=== PATIENT | male | born 1925 | race Caucasian/White ===

== ENCOUNTER 2016-11-25 03:15 | Inpatient (IN) | payer OTHER ==
[~2016-11-25] VITALS: Ht 160 cm; Wt 81.4 kg
--- NOTE | ~2016-11-25 | EKG ---
[address] [address] ELECTROCARDIOGRAM REPORT Name: DONNA L Room #: 427-P ADM IN .R.#: [id number] Admission: 11/25/16 Attend Phys: Manolo Newell MD Discharge: Date of : [birth year]/16/[birth year] Report #: [id number] THIS REPORT FOR: //name// ED Test Date: 2016-11-25 Test Time: 04:14:19 Pat Name: DONNA SCOTT Department: Room: 427 Gender: M Inside Solar Sales Consultant: KAE : 1925 Requested By: Anne-Marie Stephenson Order Number: [id number] MD: Elvis Mazariegos Measurements Intervals [place] Rate: 85 P: MA: QRS: 9 QRSD: 107 T: 102 QT: 412 QTc: 490 Interpretive Statements Atrial fibrillation Poor R wave progression Artifact in lead(s) I,II,III,aVR,aVL,aVF and baseline wander in lead(s) V5 No previous ECG available for comparison Electronically Signed On 11-25-2016 18:25:03 CDT by Elvis Mazariegos [email or web address] <ELECTRONICALLY SIGNED> By: Elvis Mazariegos MD, [facility] 11/25/16 1825 0414 0414 Elvis Mazariegos MD, [facility] /EPI
--- NOTE | ~2016-11-25 | EKG ---
[address] [address] ELECTROCARDIOGRAM REPORT Name: DONNA SCOTT Sandra Room #: 427-P ADM IN M.R.#: [id number] Admission: 11/25/16 Attend Phys: Manolo Newell MD Discharge: Date of : 11/16/[birth year] Report #: [id number] THIS REPORT FOR: //name// [facility] Test Date: 2016-11-27 Test Time: 12:00:53 Pat Name: DONNA SCOTT Department: Room: 427 P Gender: M Nutritional Services Director: ANNA : 1925 Requested By: Lila Chang Order Number: [id number] MD: Shane Olson Measurements Intervals [place] Rate: 94 P: 68 VA: 174 QRS: 0 QRSD: 81 T: 119 QT: 364 QTc: 456 Interpretive Statements Sinus rhythm Probable anterolateral infarct, age indeterm Compared to ECG 11/25/2016 04:14:19 no significant change Electronically Signed On 11-28-2016 14:08:18 CDT by Shane Olson [email or web address] <ELECTRONICALLY SIGNED> By: Shane Olson MD 11/28/16 1408 1200 99 MD CHASTITY Manudjano
--- NOTE | ~2016-11-25 | 2DMMODE ---
[facility] [address] [facility] [place] [address] 2 D/M-MODE ECHOCARDIOGRAM Name: DONNA L Room #: 427-P [facility]#: [id number] Admission: 11/25/16 Attend Phys: Manolo Newell MD Discharge: Date of : 11/16/[birth year] Date of Service: 11/27/16 1307 Report #: [id number] THIS REPORT FOR: //name// APPROVED REPORT Study performed: 11/27/2016 10:34:31 EXAM: Comprehensive 2D, Doppler, and color-flow Echocardiogram Patient Location: Bedside Room #: 427 Status: routine Other Information Study Quality: Adequate Indications Congestive Heart Failure Non STEMI 2D Dimensions RVDd: 33.17 mm LVEF(%): 49.92 (>50%) IVSd: 10.15 (7-11mm) LVOT Diam: 21.16 (18-24mm) LVDd: 41.21 mm PWd: 9.51 (7-11mm) Ascending Ao: 27.52 (22-36mm) LVDs: 30.90 (25-40mm) Aortic Root: 24.94 mm IVC: 2.30 mm Alexandre's LVEF: 49.92 % Volumes Left Atrial Volume (Systole) Single Plane 4CH: 74.19 mL Single Plane 2CH: 76.70 mL Aortic Valve AoV Peak Rafita.: 1.71 m/s AO Peak Gr.: 11.64 mmHg LVOT Max P.84 mmHg LVOT Max V: 0.84 m/s CLEO Vmax: 1.74 cm2 Mitral Valve E/A Ratio: 0.9 MV Decel. Time: 190.87 ms MV E Max Rafita.: 1.11 m/s MV A Rafita.: 1.26 m/s MV PHT: 55.35 ms IVRT: 69.20 ms [facility] [address] [place] [address] 2 D/M-MODE ECHOCARDIOGRAM Name: DONNA SCOTT Room #: 427-P [facility]#: [id number] Admission: 11/25/16 Attend Phys: Manolo Newell MD Discharge: Date of : 11/16/27 Date of Service: 11/27/16 1307 Report #: [id number] Pulmonary Valve PV Peak Rafita.: 0.87 m/s PV Peak Gr.: 3.03 mmHg Pulmonary Vein P Vein S: 0.49 m/s P Vein A: 0.37 m/s P Vein D: 0.30 m/s P Vein A Dur.: 101.5 msec P Vein S/D Ratio: 1.63 Tricuspid Valve TR Peak Rafita.: 3.18 m/s RAP Estimate: 10.00 mmHg TR Peak Gr.: 40.50 mmHg PA Pressure: 51.00 mmHg Left Ventricle The left ventricle is normal size. There is hypokinesis in the mid- distal anteroseptal, apical, distal lateral and distal inferior coto. There is normal left ventricular wall thickness. Left ventricular systolic function is moderate to severely decreased. LVEF is 35%. Grade I - abnormal relaxation pattern. Right Ventricle The right ventricle is normal size. The right ventricular systolic function is normal. Atria Left atrium is dilated. The right atrium size is normal. Aortic Valve The aortic valve is normal in structure. No aortic regurgitation is present. There is no aortic valvular stenosis. Mitral Valve The mitral valve is normal in structure. Mild to moderate mitral regurgitation. No evidence of mitral valve stenosis. Tricuspid Valve The tricuspid valve is normal in structure. There is trace tricuspid regurgitation. The right atrial pressure is estimated at 10 mmHg. There is moderate pulmonary hypertension with an estimated PAP of 51 mmHg. Pulmonic Valve The pulmonary valve is normal in structure. Trace pulmonic regurgitation. [address] [address] 2 D/M-MODE ECHOCARDIOGRAM Name: DONNA SCOTT Room #: 427-P [facility] IN [facility]#: [id number] Admission: 11/25/16 Attend Phys: Manolo Newell MD Discharge: Date of : 11/16/27 Date of Service: 11/27/16 1307 Report #: [id number] Great Vessels The aortic root is normal in size. IVC is dilated and collapses >50% with inspiration. Pericardium Trace pericardial effusion. <Conclusion> The left ventricle is normal size. Left ventricular systolic function is moderate to severely decreased. Grade I - abnormal relaxation pattern. The right ventricle is normal size. Left atrium is dilated. The aortic valve is normal in structure. Mild to moderate mitral regurgitation. There is trace tricuspid regurgitation. The right atrial pressure is estimated at 10 mmHg. There is moderate pulmonary hypertension with an estimated PAP of 51 mmHg. <ELECTRONICALLY SIGNED> By: Shane Olson MD 11/27/16 1307 1307 1307 Shane Olson MD /INF
--- NOTE | ~2016-11-25 | HC ---
[facility] [address] [place] [address] CONSULTATION Name: DONNA SCOTT Room #: 427-P [facility] IN .R.#: [id number] Admission: 11/25/16 Attend Phys: Manolo Newell MD Discharge: Date of : 11/16/[birth year] Report #: [id number] THIS REPORT FOR: //name// CC: FAM unknown Manolo Newell DATE OF SERVICE: 11/25/2016 REASON FOR CONSULTATION: Exacerbation of COPD. IMPRESSION: 1. Exacerbation of chronic obstructive pulmonary disease. 2. Possible volume overload, congestive heart failure. 3. History of Clostridium difficile. 4. Lower extremity edema. 5. Hypothyroidism. PLAN: We will decrease IV fluids. We will do venous Doppler of lower extremities. Continue aerosol therapy, decrease steroids as able. Discussed with nurse. HISTORY OF PRESENT ILLNESS: An 89-year-old male transferred because of progressive shortness of breath. No definite chest pain or palpitations. Discharged from [facility], had been on doxycycline, Keflex, oral vancomycin. Also had history of cellulitis per chart. PAST MEDICAL HISTORY: Per chart. MEDICATIONS: Had included ascorbic acid, aspirin, Coreg, cephalexin, cholecalciferol, cholestyramine, Plavix, doxycycline, levothyroxine, calcium, losartan. ALLERGIES: None known. SOCIAL HISTORY: Per chart, negative tobacco, negative ETOH. REVIEW OF SYSTEMS: When seen this morning, the patient denied chest pain or shortness of breath. Did relate he was short of breath in the past. Denied any hemoptysis or hematemesis or nausea, vomiting. Did complain of loose stools. PHYSICAL EXAMINATION: VITAL SIGNS: Temperature 37, pulse , respirations 19 and BP 127/76. EYES: Negative icterus. NECK: Negative JVD. LUNGS: Showed mild wheeze. HEART: Regular. [facility] [address] [place] [address] CONSULTATION Name: DONNA SCOTT Sandra Room #: 427-P [facility] IN [facility]#: [id number] Admission: 11/25/16 Attend Phys: Manolo Newell MD Discharge: Date of : 11/16/[birth year] Report #: [id number] ABDOMEN: Bowel sounds present. EXTREMITIES: Showed positive edema and mild erythema, no calf tenderness. LABORATORY DATA: White count 11.2, hemoglobin 13.2, platelets 199. No bands. BUN 17, creatinine 1.3. Troponin less than 0.04. ProBNP 3024. Chest x-ray showed mild congestion, left atelectasis. He denied sputum production. <ELECTRONICALLY SIGNED> By: Yogesh Ravi MD 11/30/16 1914 215 17 Yogesh Ravi MD /nt
--- NOTE | ~2016-11-25 | HC ---
[facility] [place] [place] [address] CONSULTATION Name: DONNA SCOTT Room #: 427-P [facility] IN ..#: [id number] Admission: 11/25/16 Attend Phys: Manolo Newell MD Discharge: Date of : 11/16/27 Report #: [id number] THIS REPORT FOR: //name// CC: FAM unknown Manolo Newell INFECTIOUS DISEASE CONSULTATION REASON FOR CONSULTATION: I was asked to evaluate concerning pneumonia. HISTORY OF PRESENT ILLNESS: The patient is an 89-year-old with underlying history of COPD, congestive heart failure and diabetes. Hospitalized recently at [facility] and was discharged on 11/22, to ____ assisted living. The patient does state he fell, although I have not corroborated that report. EMS states that he is hypoxic on room air and was admitted through the emergency room. He was on cephalexin and doxycycline. He was also on oral vancomycin, I would assume for C. difficile colitis, although the patient denies having any current diarrhea. Diagnoses at [facility] were cellulitis and pneumonia. The patient was sitting up in his chair, denied any headache, cough, or sputum production. He states he has had no ongoing pain. No nausea, vomiting, or diarrhea. He denies any lower extremity discomfort or cellulitis. ALLERGIES: None known. MEDICATIONS: As noted on his MAR including vancomycin enterally and Levaquin. PAST MEDICAL HISTORY: Congestive heart failure, COPD, hypertension, hypothyroidism, diabetes, dementia, BPH, atrial fibrillation, and vitamin D and B12 deficiency. FAMILY HISTORY: Noncontributory. SOCIAL HISTORY: Nonsmoker. No significant alcohol intake. REVIEW OF SYSTEMS: As noted above. PHYSICAL EXAMINATION: VITAL SIGNS: He is afebrile, hemodynamically stable. GENERAL: He is sitting up in his chair. EXTREMITIES: He had 2+ lower extremity edema and no cellulitis identified. HEENT: Unremarkable. NECK: Supple. LUNGS: Have decreased breath sounds in the bases bilaterally. HEART: Regular without murmur. ABDOMEN: Soft, nontender, no hepatosplenomegaly or mass. [facility] [address] [place] [address] CONSULTATION Name: DONNA SCOTT Sandra Room #: 427-P [facility].#: [id number] Admission: 11/25/16 Attend Phys: Manolo Newell MD Discharge: Date of : 11/16/[birth year] Report #: [id number] NEUROLOGIC: Nonfocal. LABORATORY STUDIES: Sodium 140, potassium 4.0, bicarbonate 28, creatinine 1.5, albumin of 3. Liver function tests normal. Lactate 4.1. Troponin negative. BNP 3914. Hemoglobin 12.2, WBC 20.8, platelet count 179,000; 89% neutrophils, and 6% bands. C. difficile PCR was negative. ABG on room air showed a pO2 of 60, pCO2 of 40, and pH 7.4. Chest x-ray, perihilar and basilar infiltrates with atelectasis and small effusions. Ultrasound of the lower extremity is negative for DVT. IMPRESSION: An 89-year-old with exacerbation of chronic obstructive pulmonary disease along with congestive heart failure. He has peripheral edema and venous stasis changes. In addition, he is on treatment for Clostridium difficile colitis . Would recommend diuresis as able and follow his chest x-ray. We will continue with Levaquin for short course and enteral vancomycin for his Clostridium difficile colitis history. I am suspecting that his leukocytosis is from the corticosteroids. We will follow his white blood cell count. Continue with leg elevation and compression. <ELECTRONICALLY SIGNED> By: Kristopher Talley MD 11/27/16 1127 1155 1225 Kristopher Talley MD /nt
[2016-11-25 03:16] VITALS: BP 178/91
[2016-11-25] MEDS ORDERED: ASA5UEC PO (03:48)
[2016-11-25] MEDS ORDERED: ACIDOPHILUS1 EAC2 PO (03:48)
[2016-11-25] MEDS ORDERED: VITAMINC500 (03:48)
[2016-11-25] MEDS ORDERED: KEFLEX500 M1 PO (03:49)
[2016-11-25] MEDS ORDERED: COREG3.125 MG PO (03:49)
[2016-11-25] MEDS ORDERED: CENTRUM SILVER1 EAC4 (03:49)
[2016-11-25] MEDS ORDERED: VITAMIN D1000 UNI1 PO (03:50)
[2016-11-25] MEDS ORDERED: PLAVIX 75 MG TA75 M1 PO (03:51)
[2016-11-25] MEDS ORDERED: CRANBERRY450 M1 PO (03:51)
[2016-11-25] MEDS ORDERED: CHOLESTYRAMINE P4 GM PO (03:51)
[2016-11-25] MEDS ORDERED: VITAMIN B-12500 MCG PO (03:52)
[2016-11-25] MEDS ORDERED: DONEPEZIL HCL10 MG (03:52)
[2016-11-25] MEDS ORDERED: IRON325 PO (03:53)
[2016-11-25] MEDS ORDERED: DOXYCYCLINE 10100 MG (03:53)
[2016-11-25] MEDS ORDERED: PROSCAR 5MG TABL5 MG PO (03:54)
[2016-11-25] MEDS ORDERED: FISH OIL 1,001000 M2 PO (03:54)
[2016-11-25] MEDS ORDERED: HYDROCORTISONE30 G9 PO (03:55)
[2016-11-25] MEDS ORDERED: HYDROCORTISONE PO (03:55)
[2016-11-25] MEDS ORDERED: LEVOTHYROXINE 0.1 MG PO (03:56)
[2016-11-25] MEDS ORDERED: COZAAR 25 MG TA25 M1 (03:56)
[2016-11-25] MEDS ORDERED: LEVEMIR100 UNIT/1 SUBQ (03:56)
[2016-11-25 03:57] LABS: ABG SAMPLE TYPE VENOUS; BE(vivo) 1.2 mmol/L (-2 to +3); HCO3 29.7 mmol/L (22.0-26.0); LACTATE 2.22 mmol/L (0.5-2.0); O2(CT) 8.3 mL/dL (15.0-23.0); O2Hb VENOUS 40.2 (65.0-85.0); PCO2 VENOUS 64.9 mmHg (41.0-51.0); PO2 VENOUS 24.1 mmHg (35.0-45.0); STICK SITE L.RADIAL; tCO2 31.7 mmol/L (24.0-30.0)
[2016-11-25] MEDS ORDERED: OYSTER SHELL C1 EA15 (03:59)
[2016-11-25 04:00] VITALS: BP 161/63
[2016-11-25] MEDS ORDERED: KLOR-CON 1010 MEQ (04:00)
[2016-11-25] MEDS ORDERED: VANCOMYCIN HCL500 MG PO (04:02)
[2016-11-25] MEDS ORDERED: ZINC50 MG (04:03)
[2016-11-25 04:10] LABS: ABSOLUTE NEUTROPHILS 8.1 thou/uL (1.4-8.2); BASOPHILS 0.9 % (0.0-2.0); EOSINOPHILS 2.4 % (0.0-3.0); HEMATOCRIT 39.8 % (42.0-52.0); HEMOGLOBIN 13.2 gm/dL (14.0-18.0); LYMPHOCYTES 17.9 % (24.0-44.0); MCH 31.4 pg (26.0-34.0); MCHC 33.2 g/dL (28.0-37.0); MCV 94.5 fL (80.0-100.0); MONOCYTES 5.9 % (1.0-8.0); PLATELET COUNT 199 thou/uL (150-400); POLYS 72.9 % (36.0-66.0); RBC 4.21 mil/uL (4.50-6.00); RDW 13.9 % (10.5-14.5); WBC 11.2 thou/uL (4.0-11.0)
[2016-11-25 04:11] LABS: MANUAL DIFF NO
[2016-11-25 04:14] LABS: ANION GAP 8 mmol/L (7-16); BUN 17 mg/dL (7-18); CALCIUM 9.5 mg/dL (8.5-10.1); CHLORIDE 104 mmol/L (98-107); CO2 30 mmol/L (21-32); CREATININE 1.3 mg/dL (0.7-1.3); GLUCOSE 182 mg/dL (74-106); POTASSIUM 4.5 mmol/L (3.5-5.1); SODIUM 142 mmol/L (136-145)
[2016-11-25 04:29] LABS: NT-PRO BRAIN NAT PEPTIDE 3024 pg/mL (<300); TROPONIN-I < 0.04 ng/mL (<0.04-0.07)
[2016-11-25 05:32] VITALS: BP 159/58
[2016-11-25 08:03] VITALS: BP 127/76
[2016-11-25 09:24] LABS: ABG SAMPLE TYPE ARTERIAL; BE(vivo) 1.1 mmol/L (-2 to +3); O2(CT) 17.9 mL/dL (15.0-23.0); O2Hb 92.3 % (92.0-98.0); PCO2 47.6 mmHg (35.0-45.0); PO2 68.9 mmHg (80.0-100.0); pH 7.371 (7.360-7.450); sO2 93.2 % (92.0-98.0); tCO2 28.4 mmol/L (24.0-30.0)
[2016-11-25 09:25] LABS: LACTATE 4.34 mmol/L (0.5-2.0); STICK SITE R.RADIAL
[2016-11-25 20:53] VITALS: BP 139/58
[2016-11-25 23:31] VITALS: BP 120/50
[2016-11-26 01:36] LABS: HEMATOCRIT 36.1 % (42.0-52.0); HEMOGLOBIN 12.2 gm/dL (14.0-18.0); MCH 31.2 pg (26.0-34.0); MCHC 33.7 g/dL (28.0-37.0); MCV 92.6 fL (80.0-100.0); PLATELET COUNT 179 thou/uL (150-400); RDW 13.5 % (10.5-14.5); WBC 20.8 thou/uL (4.0-11.0)
[2016-11-26 01:50] LABS: CALCIUM 9.1 mg/dL (8.5-10.1); CREATININE 1.5 mg/dL (0.7-1.3); MAGNESIUM 1.6 mg/dL (1.8-2.4); TOTAL BILIRUBIN 0.3 mg/dL (<0.1-1.0); TOTAL PROTEIN 6.3 g/dL (6.4-8.2)
[2016-11-26 01:54] LABS: MANUAL DIFF YES
[2016-11-26 02:01] LABS: NT-PRO BRAIN NAT PEPTIDE 3914 pg/mL (<300); TROPONIN-I < 0.04 ng/mL (<0.04-0.07)
[2016-11-26 02:32] LABS: ABSOLUTE NEUTROPHILS 19.8 thou/uL (1.4-8.2); ATYPICAL LYMPHS 1 %; TOTAL CELL COUNT 100
[2016-11-26 03:21] VITALS: BP 139/65
[2016-11-26 07:35] LABS: ABG SAMPLE TYPE ARTERIAL; BE(vivo) -0.1 mmol/L (-2 to +3); HCO3 24.6 mmol/L (22.0-26.0); O2Hb 89.8 % (92.0-98.0); PCO2 40.4 mmHg (35.0-45.0); PO2 60.3 mmHg (80.0-100.0); pH 7.402 (7.360-7.450); sO2 91.2 % (92.0-98.0); tCO2 25.8 mmol/L (24.0-30.0)
[2016-11-26 07:37] LABS: LACTATE 4.75 mmol/L (0.5-2.0); STICK SITE L.RADIAL
[2016-11-26 08:37] VITALS: BP 159/823
[2016-11-26 16:33] VITALS: BP 111/46
[2016-11-26 19:43] VITALS: BP 138/69
[2016-11-27 03:29] VITALS: BP 127/59
[2016-11-27 06:51] LABS: MCH 30.8 pg (26.0-34.0); MCHC 32.5 g/dL (28.0-37.0); MCV 94.7 fL (80.0-100.0); PLATELET COUNT 237 thou/uL (150-400); RBC 3.91 mil/uL (4.50-6.00); RDW 14.1 % (10.5-14.5); WBC 19.5 thou/uL (4.0-11.0)
[2016-11-27 07:02] LABS: MANUAL DIFF YES
[2016-11-27 07:33] VITALS: BP 125/48
[2016-11-27 08:20] LABS: ALBUMIN 3.3 g/dL (3.4-5.0); CALCIUM 9.5 mg/dL (8.5-10.1); CREATININE 1.9 mg/dL (0.7-1.3); MAGNESIUM 1.9 mg/dL (1.8-2.4); POTASSIUM 4.1 mmol/L (3.5-5.1); TOTAL BILIRUBIN 0.3 mg/dL (<0.1-1.0); TOTAL PROTEIN 6.5 g/dL (6.4-8.2)
[2016-11-27 08:26] LABS: TROPONIN-I 5.36 ng/mL (<0.04-0.07)
[2016-11-27 08:38] LABS: ABSOLUTE NEUTROPHILS 18.1 thou/uL (1.4-8.2); PLATELET ESTIMATE NORMAL; TOTAL CELL COUNT 100
[2016-11-27 10:44] LABS: TSH 0.025 uIU/mL (0.358-3.740)
[2016-11-27 20:47] VITALS: BP 161/86
[2016-11-28 03:22] VITALS: BP 130/57
[2016-11-28 04:29] LABS: HEMATOCRIT 37.4 % (42.0-52.0); HEMOGLOBIN 12.4 gm/dL (14.0-18.0); MCH 31.3 pg (26.0-34.0); MCV 94.6 fL (80.0-100.0); RBC 3.95 mil/uL (4.50-6.00); RDW 13.9 % (10.5-14.5); WBC 17.8 thou/uL (4.0-11.0)
[2016-11-28 04:48] LABS: ALBUMIN 3.2 g/dL (3.4-5.0); CALCIUM 8.9 mg/dL (8.5-10.1); CREATININE 1.7 mg/dL (0.7-1.3); POTASSIUM 3.7 mmol/L (3.5-5.1)
[2016-11-28 04:53] LABS: TROPONIN-I 4.57 ng/mL (<0.04-0.07)
[2016-11-28 07:46] VITALS: BP 131/75
[2016-11-28 15:47] VITALS: BP 101/45
[2016-11-28 20:10] VITALS: BP 129/51
[2016-11-29 01:19] VITALS: BP 135/60
[2016-11-29 04:00] VITALS: BP 140/57
[2016-11-29 04:11] LABS: ALBUMIN 3.2 g/dL (3.4-5.0); CALCIUM 9.1 mg/dL (8.5-10.1); CREATININE 1.9 mg/dL (0.7-1.3); MAGNESIUM 2.1 mg/dL (1.8-2.4)
[2016-11-29 04:14] LABS: TROPONIN-I 1.66 ng/mL (<0.04-0.07)
[2016-11-29 04:23] LABS: HEMOGLOBIN 12.7 gm/dL (14.0-18.0); MCH 31.2 pg (26.0-34.0); MCHC 33.5 g/dL (28.0-37.0); MCV 93.2 fL (80.0-100.0); PLATELET COUNT 174 thou/uL (150-400); RBC 4.07 mil/uL (4.50-6.00); RDW 13.7 % (10.5-14.5); WBC 13.7 thou/uL (4.0-11.0)
[2016-11-29 04:30] LABS: MANUAL DIFF YES
[2016-11-29 08:25] LABS: ABSOLUTE NEUTROPHILS 13.3 thou/uL (1.4-8.2); TOTAL CELL COUNT 100
[2016-11-29 08:26] LABS: ANISOCYTOSIS SLIGHT
[2016-11-29 10:07] VITALS: BP 113/42
[2016-11-29 16:46] VITALS: BP 123/45
[2016-11-29 19:49] VITALS: BP 135/49
[2016-11-30 03:29] VITALS: BP 129/47
[2016-11-30 05:38] LABS: HEMATOCRIT 36.6 % (42.0-52.0); HEMOGLOBIN 12.3 gm/dL (14.0-18.0); MCH 31.3 pg (26.0-34.0); MCHC 33.6 g/dL (28.0-37.0); MCV 93.3 fL (80.0-100.0); PLATELET COUNT 183 thou/uL (150-400); RBC 3.92 mil/uL (4.50-6.00); RDW 13.7 % (10.5-14.5); WBC 16.6 thou/uL (4.0-11.0)
[2016-11-30 05:44] LABS: MANUAL DIFF YES
[2016-11-30 05:46] LABS: CALCIUM 9.2 mg/dL (8.5-10.1); CREATININE 1.8 mg/dL (0.7-1.3); PHOSPHORUS 4.6 mg/dL (2.5-4.9); POTASSIUM 3.5 mmol/L (3.5-5.1)
[2016-11-30 07:15] LABS: ABSOLUTE NEUTROPHILS 14.9 thou/uL (1.4-8.2); PLATELET ESTIMATE NORMAL; TOTAL CELL COUNT 100
[2016-11-30 15:35] VITALS: BP 142/48
[2016-11-30 20:10] VITALS: BP 141/118
[2016-12-01 03:13] VITALS: BP 165/81
[2016-12-01 05:47] LABS: CALCIUM 8.9 mg/dL (8.5-10.1); CREATININE 1.7 mg/dL (0.7-1.3); PHOSPHORUS 4.2 mg/dL (2.5-4.9); POTASSIUM 3.5 mmol/L (3.5-5.1)
[2016-12-01 08:03] VITALS: BP 144/59
[2016-12-01 17:22] VITALS: BP 136/47
[2016-12-01 20:00] VITALS: BP 154/65
[2016-12-02 04:00] VITALS: BP 157/71
[2016-12-02 07:21] LABS: CALCIUM 9.3 mg/dL (8.5-10.1); CREATININE 1.5 mg/dL (0.7-1.3); POTASSIUM 4.1 mmol/L (3.5-5.1)
[2016-12-02 08:25] VITALS: BP 152/70
[2016-12-02 16:30] VITALS: BP 136/64
[2016-12-02 20:03] VITALS: BP 137/99
[2016-12-03 03:41] VITALS: BP 147/73
[2016-12-03 08:02] VITALS: BP 134/58
[2016-12-03 08:54] LABS: CALCIUM 9.3 mg/dL (8.5-10.1); CREATININE 1.5 mg/dL (0.7-1.3); PHOSPHORUS 3.6 mg/dL (2.5-4.9); POTASSIUM 4.4 mmol/L (3.5-5.1)
[2016-12-03] MEDS ORDERED: LEVAQUIN 250 M250 MG PO (09:21)
[2016-12-03] MEDS ORDERED: VANCOMYCIN100 MG/ML PO (09:21)
[2016-12-03] MEDS ORDERED: LASIX 40 MG TAB40 M1 PO (09:22)
[2016-12-03] MEDS ORDERED: PREDNISONE 20 M20 M1 PO (09:27)
[2016-12-03 16:48] VITALS: BP 141/66
[2016-12-03 19:02] VITALS: BP 158/66
[2016-12-04 03:43] VITALS: BP 144/75
[2016-12-04 07:53] VITALS: BP 147/55
== END 2016-12-04 13:11 | DRG 871 ==
LOC: ER 03:15 → 4E 04:39 → EROBS 04:39 → 4E 05:15
PROVIDERS: Emergency Medicine; Hospitalist; Internal Medicine Cardiovascular Disease; Internal Medicine Infectious Disease; Internal Medicine Pulmonary Disease; Nurse Practitioner Family; Nurse Practitioner Gerontology
DX: A41.9 Sepsis, unspecified organism (principal); J96.21 Acute and chronic respiratory failure with hypoxia; J18.1 Lobar pneumonia, unspecified organism; G93.41 Metabolic encephalopathy; I21.4 Non-ST elevation (NSTEMI) myocardial infarction; I50.43 Acute on chronic combined systolic (congestive) and diastolic (congestive) heart failure; J44.1 Chronic obstructive pulmonary disease with (acute) exacerbation; J44.0 Chronic obstructive pulmonary disease with (acute) lower respiratory infection; L03.116 Cellulitis of left lower limb; L03.115 Cellulitis of right lower limb; A04.7 Enterocolitis due to Clostridium difficile; N17.9 Acute kidney failure, unspecified; I11.0 Hypertensive heart disease with heart failure; E11.9 Type 2 diabetes mellitus without complications; I48.91 Unspecified atrial fibrillation; F03.90 Unspecified dementia, unspecified severity, without behavioral disturbance, psychotic disturbance, mood disturbance, and anxiety; N40.0 Benign prostatic hyperplasia without lower urinary tract symptoms; E78.5 Hyperlipidemia, unspecified; E03.9 Hypothyroidism, unspecified; I25.5 Ischemic cardiomyopathy; I34.0 Nonrheumatic mitral (valve) insufficiency; I27.2 Other secondary pulmonary hypertension; Z79.899 Other long term (current) drug therapy; Z79.82 Long term (current) use of aspirin
CPT/HCPCS: 10183

== ENCOUNTER 2016-12-24 18:25 | Inpatient (IN) | payer OTHER ==
[~2016-12-24] VITALS: Ht 154.9 cm; Wt 85.0 kg
--- NOTE | ~2016-12-24 | EKG ---
[place] [address] [address] [place] [address] ELECTROCARDIOGRAM REPORT Name: DONNA SCOTT Sandra Room #: 451-P ADM IN .R.#: [id number] Admission: 12/24/16 Attend Phys: Manolo Newell MD Discharge: Date of : 11/16/27 Report #: [id number] THIS REPORT FOR: //name// [facility] ED Test Date: 2016-12-24 Test Time: 19:10:34 Pat Name: DONNA SCOTT Department: Room: [facility] Gender: M Bilingual Speech Therapist: [id number] : 1925 Requested By: Jake Bassett Order Number: [id number] MD: Elvis Mazariegos Measurements Intervals [place] Rate: 78 P: 58 SD: 155 QRS: -18 QRSD: 91 T: 108 QT: 394 QTc: 449 Interpretive Statements Sinus rhythm LVH with secondary repolarization abnormality Anterior infarct, old Compared to ECG 11/27/2016 12:00:53 Left ventricular hypertrophy now present Electronically Signed On 12-25-2016 8:42:25 CDT by Elvis Mazariegos [email or web address] <ELECTRONICALLY SIGNED> By: Elvis Mazariegos MD, [facility] 12/25/16 0842 09 09 Elvis Mazariegos MD, [facility] /EPI
--- NOTE | ~2016-12-24 | HC ---
[facility] [place] [address] CONSULTATION Name: DONNA SCOTT Room #: 451-P [facility] IN [facility].#: [id number] Admission: 12/24/16 Attend Phys: Manolo Newell MD Discharge: Date of : 11/16/[birth year] Report #: [id number] THIS REPORT FOR: //name// CC: FAM physician/PCP Manolo Newell DATE OF SERVICE: 12/25/2016 ATTENDING PHYSICIAN: Manolo Newell M.D. REASON FOR CONSULTATION: Possible pneumonia. HISTORY OF PRESENT ILLNESS: An 89-year-old white man readmitted to the hospital with history of increasing shortness of breath, possible pneumonia and congestive heart failure. The patient tells me he resides at a local rehabilitation place he does not know the name. He is being assisted by his nurse who corrects the patient who tells me he is admitted because he fell. Actually, it appears that the reason for admission is increasing shortness of breath and fluid retention, congestive heart failure. The patient's son has related the patient had refused using supplemental oxygen as advised. The patient's son has reported weight gain, retention of fluid and increasing shortness of breath. There appears not to be fevers, chills, hemoptysis, nausea, vomiting, diarrhea. PAST MEDICAL HISTORY: Chronic kidney disease. Congestive heart failure. Obesity. COPD. Previous episode of pneumonia. Recent pulmonary hypertension. Dementia. During current hospitalization, note is made the patient had worsening of renal function as well as development of thrombocytopenia. DRUG ALLERGIES: None listed. MEDICATIONS: The patient is currently on treatment with Levaquin 500 mg IV every 48 hours, donepezil, ferrous sulfate, methylprednisolone 40 mg IV b.i.d., aspirin, clopidogrel, insulin detemir, furosemide, carvedilol, Zosyn 2.25 grams IV every 6 hours, sodium chloride 1000 mL every 13 hours, Atrovent and albuterol inhalation treatments, guaifenesin, insulin lispro per sliding scale, p.r.n. dextrose and glucagon for hypoglycemia, p.r.n. ondansetron and nitroglycerin. He is also occasionally requiring Tylenol p.r.n., polyethylene glycol daily for constipation has been prescribed. SOCIAL HISTORY: See H and P old record. FAMILY HISTORY: See H and P old record. [address] [address] CONSULTATION Name: DONNA SCOTT Room #: 451-P [facility] IN [facility].#: [id number] Admission: 12/24/16 Attend Phys: Manolo Newell MD Discharge: Date of : 11/16/[birth year] Report #: [id number] REVIEW OF SYSTEMS: The patient is deemed to be not a good historian and most of the information on the patient is gathered from review of records. PHYSICAL EXAMINATION: GENERAL: Chronically ill appearing white man. VITAL SIGNS: Afebrile since admission, temperature 97.6, pulse 71, respirations 18, BP 142/63, weight 187.3 pounds, height 5 feet 1 inch. HEENMT: Pupils reactive. Mouth: No thrush. NECK: Supple. LUNGS: Rhonchi with basilar crackles. HEART: S1, S2. No gallop. ABDOMEN: Obese, soft, superficial ecchymosis suspect from subcutaneous heparin. GENITALIA: Revealed swelling of scrotum. RECTAL: Deferred. EXTREMITIES: Pretibial edema. NEUROLOGIC: Grossly within normal limits. LABORATORY DATA: Revealed hyperkalemia of 5.9 yesterday and potassium normalized at 4.8 today, CO2 37, BUN 52, creatinine 2.6. Note is made on 12/03/2016, creatinine was 1.5. Glucose 358-147, SGOT 57, subsequently 43 U/L, SGPT 121, albumin 2.9 g/dL. NT-proBNP 4616. White blood cell count 15,300, hemoglobin 12.1 g/dL and platelets 94,000. The white blood cell count differential revealed 98% segmented neutrophils. Urinalysis is pending. ABGs reveal pH 7.39, pCO2 45, pO2 97, bicarbonate 27. These set of gases on supplemented oxygen with nasal cannula at 3.5 liters per minute. MICROBIOLOGY DATA: Blood cultures were obtained. They are negative at the time of this dictation. RADIOLOGY EVALUATION: A chest x-ray is obtained and revealed cardiomegaly, congestive heart failure, patchy bilateral pulmonary infiltrates and I cannot review x-rays on the current computer. We will try to review on another one. ASSESSMENT: 1. Congestive heart failure and possible superimposed pneumonia. 2. Chronic obstructive pulmonary disease. 3. Acute kidney injury on chronic kidney disease. 4. Diabetes mellitus. SUGGESTIONS: Recommend continued coverage with Levaquin and Zosyn for time being. Monitor laboratory parameters, try to determine etiology of thrombocytopenia. Mild hydration may be in order, though the patient has congestive heart failure as well. [facility] [address] [place] [address] CONSULTATION Name: DONNA SCOTT Room #: 451-P ADM IN [place]#: [id number] Admission: 12/24/16 Attend Phys: Manolo Newell MD Discharge: Date of : 11/16/[birth year] Report #: [id number] Newell, thank you for requesting my suggestions in the care of your patient. <ELECTRONICALLY SIGNED> By: Ryan Fermin MD 12/26/16 0533 0954 1108 Ryan Fermin MD /nt
--- NOTE | ~2016-12-24 | HC ---
[facility] [place] [address] CONSULTATION Name: DONNA SCOTT Room #: 451-P [facility] IN .R.#: [id number] Admission: 12/24/16 Attend Phys: Manolo Newell MD Discharge: Date of : 11/16/[birth year] Report #: [id number] THIS REPORT FOR: //name// CC: Manolo Swift DATE OF SERVICE: 12/25/2016 REFERRING PROVIDER: Manolo Newell M.D. REASON FOR CONSULTATION: Pneumonia. CHIEF COMPLAINT: Shortness of breath. HISTORY OF PRESENT ILLNESS: Our group was asked to see the patient in consultation while hospitalized at [facility]. The patient recently discharged with similar diagnosis. The patient complained of increasing shortness of breath and productive cough. The patient has significant dementia and difficult obtaining adequate history presents here for pneumonia. There was some concern at that time for dysphagia with aspiration, was discharged to rehab facility, some confusion about wearing supplemental oxygen in the past. Again, as mentioned, represented with similar findings. Chest x-ray revealed some persistent left basilar infiltrate. We were asked to further evaluate. ALLERGIES: No known drug allergies. PAST MEDICAL HISTORY: 1. History of underlying dementia. 2. Hypothyroidism. 3. Hypertension. 4. Obstructive lung disease, severity uncertain. 5. Prior history of congestive heart failure. 6. History of atrial fibrillation. OUTPATIENT MEDICATIONS: Included Lactobacillus, ascorbic acid, aspirin, carvedilol, multivitamin, vitamin D, cholestyramine, Plavix, cranberry concentrate, vitamin B12, Aricept, ferrous sulfate, Proscar, fish oil, hydrocortisone, Synthroid, Zinc. SOCIAL HISTORY: The patient has a remote tobacco history, no significant alcohol consumption at this time, is a retired agency owner of a hardware store. FAMILY HISTORY: Noncontributory due to his advanced age. REVIEW OF SYSTEMS: [facility] [address] [place] [address] CONSULTATION Name: DONNA SCOTT Room #: 451-P [facility] IN [facility]#: [id number] Admission: 12/24/16 Attend Phys: Manolo Newell MD Discharge: Date of : 11/16/[birth year] Report #: [id number] CONSTITUTIONAL: Denies any fevers, chills or sweats. ENT: No upper respiratory congestion, rhinorrhea, some dysphagia noted on past speech therapy evaluation. CARDIOVASCULAR: No chest pains, palpitations, known history of cardiac disease. GASTROINTESTINAL: No nausea, vomiting or abdominal pain reported. GENITOURINARY: No dysuria, no frequency or hematuria. INTEGUMENT: Denies any new rash. MUSCULOSKELETAL: Generalized weakness. No joint pains. Some extremity edema. PHYSICAL EXAMINATION: VITAL SIGNS: Afebrile, pulse 70s, respiratory rate 20, blood pressure 118/51, oxygen saturation 94% on 2 liters. GENERAL: This is a pleasant elderly male, does not appear in any apparent distress. ENT: Clear oropharynx. No thrush. NECK: Supple, no lymphadenopathy. LUNGS: Diffuse expiratory rhonchi heard throughout. CARDIOVASCULAR: Heart was irregular. No murmurs noted. ABDOMEN: Soft, nontender, no masses. EXTREMITIES: 1+ edema. LABORATORY DATA: Chemistry profile revealed a sodium of 136, potassium 4.8, chloride 96, bicarbonate 37, BUN 52, creatinine 2.6, glucose 147. White blood cell count 15,000, hemoglobin 12, hematocrit 36, platelet count 94. Arterial blood gas done on apparently 3 liters revealed pH 7.39, pCO2 of 45, pO2 of 97, bicarbonate 27, lactate was 5. IMPRESSION: 1. Lower respiratory infection with obstructive lung disease, most consistent with either persistent or recurrent healthcare-associated pneumonia, suggest CT scan of the chest. Continue antibiotics per Infectious Disease service, may require bronchoscopy, escalate airway clearance by adding IPV. Continue with systemic steroids and bronchodilators. 2. Acute renal failure, currently on normal saline 80 mL an hour. Would continue with IV fluids and follow electrolytes. 3. Dementia. 4. Underlying chronic obstructive pulmonary disease with exacerbation. 5. Elevated lactate. 6. Hypothyroidism. 7. Atrial fibrillation. SUGGESTIONS: As outlined above, [place] [address] CONSULTATION Name: DONNA SCOTT Room #: 451-P [facility] IN [facility]#: [id number] Admission: 12/24/16 Attend Phys: Manolo Newell MD Discharge: Date of : 11/16/27 Report #: [id number] Thank you for requesting our suggestions. By: [id number] [id number] Herve Darden MD /kae
[~2016-12-24 18:25] MED LIST: ACIDOPHILUS1 EAC2 PO; ASA5UEC PO; CENTRUM SILVER1 EAC4; CHOLESTYRAMINE P4 GM PO; COREG3.125 MG PO; COZAAR 25 MG TA25 M1; CRANBERRY450 M1 PO; DONEPEZIL HCL10 MG; DOXYCYCLINE 10100 MG; FISH OIL 1,001000 M2 PO; HYDROCORTISONE PO; HYDROCORTISONE30 G9 PO; IRON325 PO; KEFLEX500 M1 PO; KLOR-CON 1010 MEQ; LASIX 40 MG TAB40 M1 PO; LEVAQUIN 250 M250 MG PO; LEVEMIR100 UNIT/1 SUBQ; LEVOTHYROXINE 0.1 MG PO; OYSTER SHELL C1 EA15; PLAVIX 75 MG TA75 M1 PO; PREDNISONE 20 M20 M1 PO; PROSCAR 5MG TABL5 MG PO; VANCOMYCIN HCL500 MG PO; VANCOMYCIN100 MG/ML PO; VITAMIN B-12500 MCG PO; VITAMIN D1000 UNI1 PO; VITAMINC500; ZINC50 MG
[2016-12-24 18:30] VITALS: BP 146/55
[2016-12-24 18:42] LABS: ABG SAMPLE TYPE ARTERIAL; BE(vivo) 1.7 mmol/L (-2 to +3); HCO3 27.1 mmol/L (22.0-26.0); O2(CT) 17.5 mL/dL (15.0-23.0); O2Hb 96.5 % (92.0-98.0); PCO2 45.3 mmHg (35.0-45.0); PO2 97.3 mmHg (80.0-100.0); pH 7.394 (7.360-7.450); sO2 97.3 % (92.0-98.0); tCO2 28.4 mmol/L (24.0-30.0)
[2016-12-24 18:43] LABS: STICK SITE R.RADIAL
[2016-12-24 18:45] LABS: HEMATOCRIT 37.3 % (42.0-52.0); HEMOGLOBIN 12.3 gm/dL (14.0-18.0); MCH 30.9 pg (26.0-34.0); MCHC 33.1 g/dL (28.0-37.0); MCV 93.3 fL (80.0-100.0); PLATELET COUNT 151 thou/uL (150-400); RDW 13.7 % (10.5-14.5); WBC 18.4 thou/uL (4.0-11.0)
[2016-12-24 18:47] LABS: MANUAL DIFF YES
[2016-12-24 18:59] LABS: ANION GAP 7 mmol/L (7-16); BUN 53 mg/dL (7-18); CALCIUM 9.1 mg/dL (8.5-10.1); CHLORIDE 91 mmol/L (98-107); CO2 32 mmol/L (21-32); CREATININE 2.6 mg/dL (0.7-1.3); GLUCOSE 358 mg/dL (74-106); POTASSIUM 5.9 mmol/L (3.5-5.1); SODIUM 130 mmol/L (136-145)
[2016-12-24 19:09] LABS: ALBUMIN 3.2 g/dL (3.4-5.0); ALKALINE PHOSPHATASE 118 U/L (46-116); SGOT 57 U/L (15-37); SGPT 139 U/L (30-65); TOTAL BILIRUBIN 0.4 mg/dL (<0.1-1.0); TOTAL PROTEIN 6.2 g/dL (6.4-8.2); TROPONIN-I < 0.04 ng/mL (<0.04-0.07)
[2016-12-24 19:20] LABS: ABSOLUTE NEUTROPHILS 17.7 thou/uL (1.4-8.2); TOTAL CELL COUNT 100
[2016-12-24 19:21] LABS: ANISOCYTOSIS 1+; POLYCHROMASIA OCCASIONAL
[2016-12-24 20:01] VITALS: BP 121/55
[2016-12-24 20:54] VITALS: BP 115/48
[2016-12-25 00:39] VITALS: BP 117/37
[2016-12-25 03:46] LABS: HEMATOCRIT 35.6 % (42.0-52.0); HEMOGLOBIN 12.1 gm/dL (14.0-18.0); MCH 31.5 pg (26.0-34.0); MCHC 33.9 g/dL (28.0-37.0); MCV 92.8 fL (80.0-100.0); RBC 3.84 mil/uL (4.50-6.00); RDW 13.5 % (10.5-14.5); WBC 15.3 thou/uL (4.0-11.0)
[2016-12-25 04:01] LABS: ALBUMIN 2.9 g/dL (3.4-5.0); CALCIUM 8.7 mg/dL (8.5-10.1); CREATININE 2.6 mg/dL (0.7-1.3); TOTAL BILIRUBIN 0.6 mg/dL (<0.1-1.0); TOTAL PROTEIN 5.9 g/dL (6.4-8.2)
[2016-12-25 04:10] LABS: POTASSIUM 4.8 mmol/L (3.5-5.1)
[2016-12-25 04:13] VITALS: BP 137/61
[2016-12-25 07:07] VITALS: BP 142/63
[2016-12-25 11:55] VITALS: BP 126/49
[2016-12-25 15:25] VITALS: BP 118/51
[2016-12-25 19:20] VITALS: BP 137/58
[2016-12-26 04:05] VITALS: BP 145/58
[2016-12-26 06:01] LABS: HEMATOCRIT 35.3 % (42.0-52.0); HEMOGLOBIN 11.6 gm/dL (14.0-18.0); MCH 30.4 pg (26.0-34.0); MCHC 32.8 g/dL (28.0-37.0); MCV 92.9 fL (80.0-100.0); PLATELET COUNT 136 thou/uL (150-400); RDW 13.7 % (10.5-14.5); WBC 14.9 thou/uL (4.0-11.0)
[2016-12-26 06:08] LABS: MANUAL DIFF YES
[2016-12-26 06:17] LABS: ALBUMIN 2.8 g/dL (3.4-5.0); CALCIUM 8.4 mg/dL (8.5-10.1); CREATININE 2.4 mg/dL (0.7-1.3); PHOSPHORUS 4.2 mg/dL (2.5-4.9); POTASSIUM 3.8 mmol/L (3.5-5.1)
[2016-12-26 08:19] LABS: ANISOCYTOSIS 1+; METAMYELOCYTES 1 %; TOTAL CELL COUNT 100
[2016-12-26 08:20] LABS: HYPOCHROMASIA SLIGHT
[2016-12-26 12:05] VITALS: BP 132/58
[2016-12-26 15:06] VITALS: BP 133/47
[2016-12-26 19:06] VITALS: BP 143/49
[2016-12-27 05:38] VITALS: BP 152/56
[2016-12-27 05:42] LABS: ALBUMIN 3.1 g/dL (3.4-5.0); CALCIUM 8.7 mg/dL (8.5-10.1); CREATININE 2.1 mg/dL (0.7-1.3); PHOSPHORUS 4.3 mg/dL (2.5-4.9)
[2016-12-27 05:44] LABS: POTASSIUM 2.7 mmol/L (3.5-5.1)
[2016-12-27 06:26] LABS: URINE BILIRUBIN NEGATIVE (Negative); URINE BLOOD TRACE (Negative); URINE COLOR YELLOW; URINE GLUCOSE-RANDOM* NEGATIVE (Negative); URINE KETONES NEGATIVE (Negative); URINE NITRITE NEGATIVE (Negative); URINE PROTEIN (DIPSTICK) NEGATIVE (Negative); URINE UROBILINOGEN 0.2 E.U./dl (0.2-1.0)
[2016-12-27 07:10] VITALS: BP 153/48
[2016-12-27 12:05] VITALS: BP 146/50
[2016-12-27 19:09] VITALS: BP 149/70
[2016-12-28] VITALS (9 sets, daily range): BP systolic 123–151; BP diastolic 54–98
[2016-12-28 05:11] LABS: PHOSPHORUS 3.2 mg/dL (2.5-4.9); POTASSIUM 3.1 mmol/L (3.5-5.1)
[2016-12-29 04:16] VITALS: BP 112/39
[2016-12-29 07:18] VITALS: BP 103/45
[2016-12-29] MEDS ORDERED: LEVAQUIN 250 M250 MG PO (09:02)
[2016-12-29 11:01] VITALS: BP 110/54
== END 2016-12-29 16:44 | DRG 871 ==
LOC: ER 18:25 → 4W 19:41 → EROBS 19:41 → 4W 20:30
PROVIDERS: Hospitalist; Nurse Practitioner Family; Physician Assistant
DX: A41.9 Sepsis, unspecified organism (principal); J69.0 Pneumonitis due to inhalation of food and vomit; J96.20 Acute and chronic respiratory failure, unspecified whether with hypoxia or hypercapnia; J44.1 Chronic obstructive pulmonary disease with (acute) exacerbation; N17.9 Acute kidney failure, unspecified; I13.0 Hypertensive heart and chronic kidney disease with heart failure and stage 1 through stage 4 chronic kidney disease, or unspecified chronic kidney disease; I42.9 Cardiomyopathy, unspecified; I50.9 Heart failure, unspecified; I48.91 Unspecified atrial fibrillation; F03.90 Unspecified dementia, unspecified severity, without behavioral disturbance, psychotic disturbance, mood disturbance, and anxiety; N40.0 Benign prostatic hyperplasia without lower urinary tract symptoms; E78.5 Hyperlipidemia, unspecified; E03.9 Hypothyroidism, unspecified; R65.20 Severe sepsis without septic shock; N18.9 Chronic kidney disease, unspecified; E87.5 Hyperkalemia; Y95 Nosocomial condition; E66.9 Obesity, unspecified; I27.2 Other secondary pulmonary hypertension; E11.22 Type 2 diabetes mellitus with diabetic chronic kidney disease; Z79.899 Other long term (current) drug therapy; Z68.35 Body mass index [BMI] 35.0-35.9, adult; Z87.891 Personal history of nicotine dependence
CPT/HCPCS: 10045